=== PATIENT | female | born 1995 | race Caucasian/White ===

== ENCOUNTER → 2020-11-21 11:23 | Outpatient (CLI) | payer SELFPAY ==
--- NOTE | ~2020-11-21 | US_ITS ---
US OB transvaginal DATE: 11/21/2020 11:53 INDICATION: Gestational age determination TECHNIQUE: Real-time imaging via transvaginal approach COMPARISON: None FINDINGS: The uterus measures 8.9 cm height, 5.8 cm anteroposterior dimension. A normally shaped intr auterine gestational sac is identified with normal surrounding hyperechogenicity consistent with deci dual reaction. Normal amount of amniotic fluid. pole and yolk sac are demonstrated. heart rate 141 bpm. [place]-rump length averages 1.12 cm, consistent with 7 weeks 2 days +/- 5 days estimated gestational a ge; JELLY 07/08/2021 (compared to 07/03/2021 by LMP). 1.5 cm left ovarian cyst. The ovaries are otherwise unremarkable. No abnormal pelvic fluid collection . IMPRESSION: Estimated gestational age of 7 weeks 2 days +/- 5 days; JELLY: 07/08/2021 1.5 cm left ovarian cyst Reviewed, dictated and finalized at [facility]. Reviewed, dictated and finalized at location [facility]. IMPRESSION: Estimated gestational age of 7 weeks 2 days +/- 5 days; JELLY: 021 1.5 cm left ovarian cyst
== END ==
PROVIDERS: Visit Provider Obstetrics & Gynecology
DX: Z36.87 Encounter for antenatal screening for uncertain dates (principal); N83.202 Unspecified ovarian cyst, left side; Z3A.01 Less than 8 weeks gestation of pregnancy
CPT/HCPCS: 76817

== ENCOUNTER → 2021-02-04 12:47 | Outpatient (CLI) | payer SELFPAY ==
--- NOTE | ~2021-02-04 | US_ITS ---
EXAMINATION: US OB /maternal detail DATE: 02/04/2021 13:22 INDICATION: anatomic survey. TECHNIQUE: Real-time ultrasound of the pelvis was performed. COMPARISON: Ultrasound 11/21/2020 FINDINGS: There is a single living fetus in variable presentation. The placenta is anterior, 2.2 cm from the c ervix. heart rate is 143 beats per minute (bpm). The amniotic fluid volume is subjectively norm al. The following biometric data were obtained: Biparietal diameter (BPD): 4.0 cm; head circumference (HC): 15.5 cm; abdominal circumference (AC): 13 .3 cm; femur length (FL): 3.0 cm. These measurements are concordant. Estimated weight is 265 g +/- 40 g, which correlates with 93rd percentile when 07/08/21 is used as estimated date of delivery. As single measurements, these parameters are each equal to the following estimated gestational ages w ith ranges of +/- 2 standard deviations: BPD: 18 weeks 2 days (16 weeks 4 days - 20 weeks 0 days). HC: 18 weeks 3 days (17 weeks 0 days - 19 weeks 6 days). AC: 18 weeks 5 days (16 weeks 5 days - 20 weeks 6 days). FL: 19 weeks 2 days (17 weeks 3 days - 21 weeks 1 days). estimated gestational age based solely on measurements from this exam is 18 weeks 5 days +/- 1 weeks 2 days. The cerebral ventricles, cerebellum, cisterna magna, nuchal fold, lip, and visualized portions of the spine are normal. The heart is normal. The diaphragm, stomach, kidneys, and bladder are normal. Ther e are two umbilical arteries to yield a 3-vessel cord. The cord insertion is normal. IMPRESSION: 1. Single living fetus in variable presentation. 2. Large for gestational age. Estimated weight is 265 g +/- 40 g, which correlates with 93rd pe rcentile when 07/08/21 is used as estimated date of delivery. This date was set by ultrasound on 2020. 3. Normal anatomic survey. Reviewed, dictated and finalized at location [facility]. IMPRESSION: 1. Single living fetus in variable presentation. 2. Large for gestational age. Estimated weight is 265 g +/- 40 g, which c orrelates with 93rd percentile when 07/08/21 is used as estimated date of delive ry. This date was set by ultrasound on 11/21/2020. 3. Normal anatomic survey.
== END ==
PROVIDERS: Visit Provider Nurse Practitioner
DX: Z36.9 Encounter for antenatal screening, unspecified (principal); O36.62X0 Maternal care for excessive fetal growth, second trimester, not applicable or unspecified; Z3A.00 Weeks of gestation of pregnancy not specified
CPT/HCPCS: 76805

== ENCOUNTER → 2021-05-18 13:32 | Outpatient (CLI) | payer SELFPAY ==
--- NOTE | ~2021-05-18 | US_ITS ---
EXAMINATION: US OB follow up DATE: 05/18/2021 14:21 INDICATION: Large for gestational age during third trimester TECHNIQUE: Real-time ultrasound of the pelvis was performed. The interpreting radiologist was not pre sent for the study. COMPARISON: 02/04/2021 FINDINGS: There is a single living fetus in vertex presentation. The placenta is anterior. card iac activity and movement are noted. heart rate is 141 beats per minute (bpm). The amniot ic fluid index is 14.4 cm which is normal. The following biometric data were obtained: Biparietal diameter (BPD): 8.3 cm; head circumference (HC): 30.8 cm; abdominal circumference (AC): 31 .3 cm; femur length (FL): 6.5 cm. These measurements are concordant. Estimated weight is 2455 g +/- 368 g, which correlates with the 91st percentile when 07/08/2021 is used as estimated date of delivery. As single measurements, these parameters are each equal to the following estimated gestational ages w ith ranges of +/- 2 standard deviations: BPD: 33 weeks 4 days ( 30 weeks 4 days - 36 weeks 5 days). HC: 34 weeks 3 days ( 31 weeks 4 days - 37 weeks 3 days). AC: 35 weeks 2 days ( 32 weeks 2 days - 38 weeks 2 days). FL: 33 weeks 4 days ( 30 weeks 4 days - 36 weeks 3 days). estimated gestational age based solely on measurements from this exam is 34 weeks 2 days +/- 2 weeks 3 days. IMPRESSION: 1. Single living fetus in vertex presentation. 2. Estimated weight is 2455 g +/- 368 g, which correlates with the 91st percentile when 07/08/20 21 is used as estimated date of delivery. 3. Normal amniotic fluid index. Reviewed, dictated and finalized at location A. IMPRESSION: 1. Single living fetus in vertex presentation. 2. Estimated weight is 2455 g +/- 368 g, which correlates with the 91st p ercentile when 07/08/2021 is used as estimated date of delivery. 3. Normal amniotic fluid index.
== END ==
PROVIDERS: Visit Provider Obstetrics & Gynecology
DX: O36.63X0 Maternal care for excessive fetal growth, third trimester, not applicable or unspecified (principal); Z3A.00 Weeks of gestation of pregnancy not specified; Z3A.34 34 weeks gestation of pregnancy
CPT/HCPCS: 76816

== ENCOUNTER 2021-06-27 05:05 | Inpatient (IN) | payer SELFPAY ==
[2021-06-27] VITALS (188 sets, daily range): BP systolic 76–136; BP diastolic 40–91; PULSE 76–164; RESP 18–20; TEMP 36.6–37.2; O2SAT 73–100; BMI 38.2
[2021-06-27 05:39] LABS: Glucose Point of Care 111 mg/dl (65-105)
[2021-06-27 05:47] LABS: Basophils Percent Auto 0.2 % (0.2-1.2); Eosinophils Absolute Auto 0.2 K/mm3 (0-0.3); Eosinophils Percent Auto 1.5 % (0-4.4); Hematocrit 37.1 % (37.0-47.0); Hemoglobin 13.2 g/dL (12.0-15.0); Immature Granulocyte Absolute 0.18 K/mm3 (0.00-0.031); Immature Granulocyte Percent A 1.4 % (0-0.5); Lymphocytes Absolute Auto 1.96 K/mm3 (0.9-3.2); Lymphocytes Percent Auto 15.3 % (18.3-44.2); Mean Corpuscular HGB Conc 35.6 g/dl (32-36); Mean Corpuscular Hemoglobin 31.1 pg (26-34); Mean Corpuscular Volume 87.5 fl (80-100); Mean Platelet Volume 9.8 fl (7.4-10.4); Monocytes Absolute Auto 0.9 K/mm3 (0.1-0.6); Monocytes Percent Auto 6.9 % (2.6-8.5); Neutrophils Absolute Auto 9.6 K/mm3 (1.3-6.7); Neutrophils Percent Auto 74.7 % (45.5-73.1); Platelet Count Result 287 k/mm3 (150-375); Red Blood Count 4.24 M/mm3 (4.2-5.4); White Blood Count 12.8 K/mm3 (4.5-10.0)
--- NOTE | 2021-06-27 05:48 | LDADM ---
This patient, Tiarra Mcnally, was admitted to Labor/Delivery/Recovery 105 on 06/27/21 at 05:05. Plans for labor, pain management and were discussed with patient. Patient/family oriented to hospital policies and general routines including ID bracelet, bed and alarms, visiting hours, pain management, procedures, bathroom and other care routines, personal items, smoking policy, room service/diet and guest tray routines, security routines, and visiting hours. Patient/Family are encouraged to report perceived risks to care and to ask questions if they do not understand what they are told or what they should do. See OBIX for further documentation.
[2021-06-27] MEDS: LACTATED RINGERS 1,000 ML 125 ML IV CONT ×2 (05:53→14:10)
[2021-06-27] MEDS: OXYTOCIN 30 UNITS/NS 500 ML 30 UNITS/500 ML BAG IV CONT (05:53)
--- NOTE | 2021-06-27 08:10 | WPDANESEPP ---
Anes - Eval Pre Procedure Procedure: Labor Pain Management Date/Time: 06/27/21 08:10 Surgeon: Kwesi Preop Diagnosis: Pain during labor Pre Op Diagnosis: induction Patient Data Age: 26 Gender: F Height: 1.6 m Weight: 98 kg Last Vital Signs Temp 97.8 F 06/27/21 06:48 Pulse 93 06/27/21 08:00 Resp 20 06/27/21 06:48 BP 120/72 06/27/21 08:00 Allergies Allergy/AdvReac Type Severity Reaction Status Date / Time No Known Allergies Allergy Verified 06/27/21 06:16 Home Medications Medication Instructions Recorded Confirmed Type PNV cmb#95-ferrous fumarate-FA 1 tablet PO DAILY 06/12/21 06/12/21 History [] insulin NPH isoph U-100 human 85 unit SUBCUT HS 06/12/21 06/27/21 History [Novolin N NPH U-100 Insulin] Laboratory Tests 06/27/21 06/27/21 06/27/21 05:29 05:30 05:30 WBC 12.8 K/mm3 H K/mm3 (4.5-10.0) RBC 4.24 M/mm3 M/mm3 (4.2-5.4) Hgb 13.2 g/dL g/dL (12.0-15.0) Hct 37.1 % % (37.0-47.0) MCV 87.5 fl fl (80-100) MCH 31.1 pg pg (26-34) MCHC 35.6 g/dl g/dl (32-36) RDW 13.0 % % (11.5-14.5) Plt Count 287 k/mm3 k/mm3 (150-375) MPV 9.8 fl fl (7.4-10.4) Immature Gran % (Auto) 1.4 % H % (0-0.5) Neut % (Auto) 74.7 % H % (45.5-73.1) Lymph % (Auto) 15.3 % L % (18.3-44.2) Mitchell % (Auto) 6.9 % % (2.6-8.5) Eos % (Auto) 1.5 % % (0-4.4) Baso % (Auto) 0.2 % % (0.2-1.2) Lymph # (Auto) 1.96 K/mm3 K/mm3 (0.9-3.2) Mitchell # (Auto) 0.9 K/mm3 H K/mm3 (0.1-0.6) Eos # (Auto) 0.2 K/mm3 K/mm3 (0-0.3) Baso # (Auto) 0.0 K/mm3 K/mm3 (0.0-0.1) Abs Immat Gran (auto) 0.18 K/mm3 H K/mm3 (0.00-0.031) Absolute Neuts (auto) 9.6 K/mm3 H K/mm3 (1.3-6.7) Absolute Nucleated RBC 0.0 K/mm3 K/mm3 (0.0-0.012) Nucleated RBC % 0.0 % % (0.0-0.2) POC Capillary Glucose 111 mg/dl H mg/dl (65-105) RPR Pending Blood Type Antibody Screen 06/27/21 05:30 WBC RBC Hgb Hct MCV MCH MCHC RDW Plt Count MPV Immature Gran % (Auto) Neut % (Auto) Lymph % (Auto) Mitchell % (Auto) Eos % (Auto) Baso % (Auto) Lymph # (Auto) Mitchell # (Auto) Eos # (Auto) Baso # (Auto) Abs Immat Gran (auto) Absolute Neuts (auto) Absolute Nucleated RBC Nucleated RBC % POC Capillary Glucose RPR Blood Type A Positive Antibody Screen Negative : gestational age (edc 07/04/21) Patient hx anesthesia problems: none Family hx anesthesia problems: none Results Review: All pre-operative results and documents have been reviewed as part of the pre-operative evaluation. [facility] Family History Family History Grandparent Family history of cardiovascular disease Family history of Parkinson's disease Family history of malignant neoplasm of breast Family history of malignant neoplasm of thyroid Social History Social History Smoking status: Never smoker Second hand tobacco smoke exposure: Yes Alcohol intake: current Spiritual care concerns: No Exam Day of Procedure 06/27/21 08:10 Patient weight: obese (bmi 38.3)
[2021-06-27 09:14] LABS: Glucose Point of Care 85 mg/dl (65-105)
--- NOTE | 2021-06-27 09:45 | P.HP_ITS ---
Obstetrics - Admit Note Admission Note: record reviewed. No pertinent additions to the history and/or any subsequent changes in the physical findings that are not consistent with the expected course of the were found. AROM clear fluid /-2 Additions to the history and/or subsequent changes in the physical findings zane capone. None.
[2021-06-27] MEDS: fentaNYL CITRATE INJ (*CRX) 100 MCG/2 ML VIAL 50 MCG IV PUSH (13:04)
[2021-06-27 13:27] LABS: Glucose Point of Care 76 mg/dl (65-105)
[2021-06-27 16:25] LABS: Glucose Point of Care 53 mg/dl (65-105)
[2021-06-27 17:18] LABS: Glucose Point of Care 62 mg/dl (65-105)
[2021-06-27 18:11] LABS: Glucose Point of Care 99 mg/dl (65-105)
[2021-06-27] MEDS: ONDANSETRON INJ 4 MG/2 ML VIAL IV PUSH (19:50)
[2021-06-27 21:07] LABS: Glucose Point of Care 95 mg/dl (65-105)
--- NOTE | 2021-06-27 22:04 | PM.OBPRVD ---
OB - Delivery Note Procedure Delivery date: 06/27/21 Procedure: events: Labor Induction Intrapartal events: Diabetes Induction method: AROM and per pitocin protocol Delivery monitor: external FHT and external uterine Route of delivery: Laceration Description: Perineal - 1st Degree Delivery repair: vicryl Specimen: Yes Quantitative Blood Loss (ml): 140 Anesthesia type: Epidural Disposition: floor [place] Baby Date of : 06/27/21 Time of : 21:49 Weeks of gestation at delivery: 39 gender: Male Weight (pounds): 7 Weight (ounces): 15 presentation: vertex position: Left Occiput Anterior Placenta delivery description: Spontaneous cord vessel description: 3 Vessels, Nuchal Cord and Loose score one minute: 8 score five minutes: 9
[2021-06-27] MEDS: OXYTOCIN 30 UNITS/NS 500 ML 30 UNITS/500 ML BAG 125 UNITS IV CONT (22:18)
[2021-06-28] VITALS (7 sets, daily range): BP systolic 97–125; BP diastolic 58–73; PULSE 89–116; RESP 16–18; TEMP 36.4–36.9; O2SAT 95–98
[2021-06-28] MEDS: BENZOCAINE 20% AER SPR (*SP) 56 GM CAN 1 SPRAY TOPICAL (00:25)
[2021-06-28] MEDS: WITCH HAZEL 40 PADS 1 PAD TOPICAL (00:26)
[2021-06-28] MEDS: IBUPROFEN 600 MG TABLET PO ×4 (00:56→19:13)
--- NOTE | 2021-06-28 01:12 | PC.NURSE ---
Patient transferred to post room #285 via wheel chair. Support person present. Oriented to unit, room, information board, rooming in, admission packet and security measures. Patient verbalizes understanding.
[2021-06-28 04:31] LABS: Hematocrit 34.3 % (37.0-47.0); Hemoglobin 11.8 g/dL (12.0-15.0)
--- NOTE | 2021-06-28 07:26 | PM.OBPNVD ---
OB - PN: Subj Subjective Date/time seen: 06/28/21 07:26 doing well has some leg cramp. OB - PN: Obj Data Labs CBC & Chem 7: 06/28/21 04:13 Labs: Laboratory Results - last 24 hr 06/27/21 06/27/21 06/27/21 09:10 13:23 16:23 Hgb Hct POC Capillary Glucose 85 76 53 L* 06/27/21 06/27/21 06/27/21 17:16 18:08 21:03 Hgb Hct POC Capillary Glucose 62 L 99 95 06/28/21 04:13 Hgb 11.8 L Hct 34.3 L POC Capillary Glucose OB - PN A/P Assessment and Plan (1) (normal spontaneous vaginal delivery): Code(s): O80 - Encounter for full-term uncomplicated delivery Status: Acute Assessment and Plan: continue with pp care. Time Spent With Patient Time: Total time spent is greater than 50% in coordination of care (as documented) at patient's floor/unit and/or counseling patient: Exam Narrative: ff below umbilicus
[2021-06-28] MEDS: DOCUSATE SODIUM 100 MG CAPSULE PO (08:20)
[2021-06-28] MEDS: MULTIVIT/MIN/PREN/FOL AC/IRON TABLET 1 TAB PO (08:20)
--- NOTE | 2021-06-28 10:25 | WPDANLDPN2 ---
Anes-Prog Note L&D Date/Time: 06/28/21 10:25 Comfortable throughout: labor and delivery Neuraxial method: epidural Epidural/Spinal procedure site: clean & non-tender Neuro status: Neuro function grossly intact. Cardiovascular status: normal Respiratory status: normal Airway patency: baseline Mental status: baseline Post-Op hydration status: normal Vital Signs: Last Vital Signs Temp 98.4 F 06/28/21 01:30 Pulse 103 H 06/28/21 01:30 Resp 18 06/28/21 01:30 BP 119/73 06/28/21 01:30 Pulse Ox 82 L 06/27/21 21:49 Pain score (VAS): 0 I/O: Intake & Output 06/27/21 06/28/21 06/28/21 23:59 07:59 15:59 Intake Total 500 Output Total 305 Balance 195 Post-procedural complaints: none Patient feedback: Patient satisfied with anesthetic care.
[2021-06-28] MEDS: ACETAMINOPHEN 325 MG TABLET 650 MG PO ×2 (12:11→19:09)
[2021-06-28] MEDS: SIMETHICONE 80 MG TAB.CHEW PO ×2 (14:24→19:08)
[2021-06-29] MEDS: ACETAMINOPHEN 325 MG TABLET 650 MG PO ×2 (01:04→07:29)
[2021-06-29] MEDS: IBUPROFEN 600 MG TABLET PO ×2 (01:05→07:30)
[2021-06-29] MEDS: SIMETHICONE 80 MG TAB.CHEW PO ×2 (01:05→07:29)
[2021-06-29] MEDS: LANOLIN (LANSINOH) 7.5 GM CREAM 1 APPLIC TOPICAL (01:05)
[2021-06-29] MEDS: MULTIVIT/MIN/PREN/FOL AC/IRON TABLET 1 TAB PO (07:29)
[2021-06-29 07:30] VITALS: BP 104/69; PULSE 84; RESP 22; TEMP 36.6; O2SAT 97
--- NOTE | 2021-06-29 08:06 | PM.OBPNVD ---
OB - PN: Subj Subjective Date/time seen: 06/29/21 08:06 Patient comments: no complaints and pain well controlled baby status: doing well and nursing well OB - PN: Obj Data Labs CBC & Chem 7: 06/28/21 04:13 OB - PN A/P Plan day: 2 Plan: routine care, discharge home and follow up 6 weeks Time Spent With Patient Time: Total time spent is greater than 50% in coordination of care (as documented) at patient's floor/unit and/or counseling patient: Exam : Bimanual exam- vagina & uterus: other (Uterus firm, nt @U)
--- NOTE | 2021-06-29 09:05 | PC.NURSE ---
Consult with pt., mother reports is eagerly feeding with tenderness and needed a nipple shield on left breast. This is mother?s 2nd child to breastfeed. Requested mother call out next feeding for observation per policy. Reviewed infant feeding cues, frequencies, duration of feedings, feeding elimination flow sheet, and signs of adequate intake. Demonstrated stimulation techniques to wake for feeding. Reviewed signs of a correct latch, effective nursing and suck swallow ratio. Nipple care reviewed of lanolin after feedings and warm compresses as needed. Requested mother to call out for RN/LC assistance next feeding to assess latch due reported nipple tenderness. Instructed feeding should be initiated three hours from start of last feeding or if feeding cues are noted before. Mother voiced understanding of information shared.
--- NOTE | 2021-06-29 11:55 | PC.NURSE ---
Mother called out for assist with feeding, due to discomfort with feeding. is able to freely thrust tongue past gum ridge and flange both lips. Skin is intact on both nipples, slight redness and no bruising noted. Reviewed infant feeding cues, frequencies, duration of feedings, feeding elimination flow sheet, and signs of adequate intake. Demonstrated stimulation techniques to wake for feeding. Assisted with infant to breast. Reviewed positioning/alignment in cross cradle, holding breast in ?U? hold and guided asymmetrical latch on. Reviewed rational for each. Mother puts infant to breast in cradle positioning allowing infant to self latch with a shallow latch. Both nipples appear flat, nipples roll out easily with slight stimulation to firm everted nipples. Advised to do before each feeding. Suggested to release latch and attempt in cross cradle. Infant able to latch correctly within a few attempts. nursed eagerly with steady draws and occasional swallowing noted, some pausing noted. Reviewed signs of a correct latch, effective nursing and suck swallow ratio. Suggested mother stimulate while feeding to increase stimulation for milk supply, for increased intake and to assist with maintaining deep latch. would slip to shallow latch causing tenderness. Demonstrated how to adjust latch more deeply while feeding as needed. Mother reports she can feel the difference in latch with less tenderness. Suggested mother hold breast during entire feeding for the next week. Nipple care reviewed of lanolin after feedings, warm compresses as needed, gel pads provided and reviewed care and cleaning. Mother is planning discharge this day. Mother is feeding as required and waking to feed if needed. has had at least 8 effective feedings in the past 24 hours, and is currently meeting outcomes for weight, output, jaundice and feeding frequencies. Mother states she feels confident to continue effective at home. Reviewed transition to breast milk, signs of adequate intake, and engorgement/relief. Instructed to call ICP if intake/output less than required. Reviewed regular medications mother is taking. Information provided per Kary. Reviewed community resources on the [facility] website and in the Mom/Baby guide. Information on outpatient services provided. Mother has no further questions at this time.
[2021-06-29 14:38] LABS: Rapid Plasma Reagin Non-Reactive (NonReactive)
--- NOTE | 2021-06-29 18:24 | PC.NURSE ---
1100 Patient viewed the discharge video Mother & Baby Care, The First Two Weeks . Patient was given the opportunity and encouraged to ask questions. Patient verbalized understanding of information shared and has been given the mother/baby guide for home reference.
[2021-06-30 11:05] VITALS: BP 119/82; PULSE 72; RESP 20; TEMP 36.8; O2SAT 100
--- NOTE | 2021-07-10 12:04 | PM.OBDSVD ---
DS: Admitting Diagnosis Discharge Date 06/29/21 Admitting Diagnosis induction of labor OB - DS: Summary OB Procedures : Ultrasound OB Procedures Intrapartum: Spontaneous Vag Delivery OB Procedures: : None Time Spent with Patient Time attestation: Total time spent providing and/or coordinating discharge services: DS: Data Data Completed and Pending Completed studies during hospitalization: Pending at discharge 06/28/21 00:19 Surgical [PTH] Routine Discharge Plan Discharge Attending physician on discharge: Je Orosco Discharging Clinician: Sofía Alonso Anticipated Discharge Date/Time: 06/29/21 08:05 Patient Disposition: Home, Self-Care Activity: may shower and pelvic rest Diet: regular Discharge Instructions: Education: Mom and Baby Guide Given to: Mother Follow-Up: Call your delivering provider's office for an appointment to be seen in: 6 Weeks Mom and baby should come to the [facility] for the follow-up appointment. Appointment Date/Time: Wednesday, June 30, 2021 at 11:00 am What to expect at your follow-up visit: Physical Assessment Call [phone] if you are unable to keep your appointment time. BREAST CARE: * Wear a snug supportive bra. * For engorgement discomfort: Breast Feeding: * Apply warm moist washcloths * Express milk as needed to relieve engorgement * Wear loose clothing * For sore nipples: * Identify correct latch-on * Apply warm moist washcloths before and after nursing * Air dry nipples after nursing * May apply Lansinoh cream to nipples EPISIOTOMY/PERINEAL CARE: * Until bleeding stops, use your machelle bottle after urinating * Change your pad frequently throughout the day * You may take sitz baths several times a day (fill your bathtub with warm water and soak for 20 minutes.) Do NOT bathe in the water * No tub baths until seen by your physician - You may shower ACTIVITY: * Rest as much as possible. * Do not exercise or lift anything heavier than your baby (such as laundry or other children.) * Avoid stairs or driving as much as possible. * Do not put anything into the vagina. No douching, tampons, or sexual activity until seen by physician. NOTIFY PHYSICIAN IF YOU HAVE ANY QUESTIONS OR IF ANY OF THE FOLLOWING SYMPTOMS OCCUR: * If your episiotomy or incision becomes red, swollen, or more painful than what you have experienced in the hospital. * If your vaginal bleeding becomes foul smelling. * If your vaginal bleeding becomes more heavy than a period or if your bleeding changes from pink to bright red. However, you may pass an occasional walnut-sized clot once or twice for the first week . * If you experience a sharp, shooting pain in you calves. * If you discover a hard, reddened area on your breast or if you experience flu-like symptoms. DIET: * Eat regular, well-balanced meals. * Drink plenty of fluids daily. If , drink to thirst. Follow-up/Referrals: Je Orosco MD [Physician] - 6 Weeks Discharge Medications: Continued PNV cmb#95-ferrous fumarate-FA [] 28 mg iron- 800 mcg Tablet 1 tablet PO DAILY RF: 0 Discontinued Novolin N NPH U-100 Insulin 100 unit/mL Cartridge 85 unit SUBCUT HS RF: 0 Date of admission: 06/27/21 05:05 Primary Care Provider: Kelsi Tillman Admitting Provider: Je Orosco Attending physician on admission: Sofía Alonso Condition: Stable
== END 2021-06-29 13:32 | disposition home or self-care (01) | DRG 560 ==
LOC: ANHOB2 06-29 08:06 → ANHLDR 06-30 07:35 → ANHOB2 06-30 07:35
PROVIDERS: Admitting Provider Obstetrics & Gynecology; PCP Family Medicine; Visit Provider Obstetrics & Gynecology Gynecology
DX: O24.429 Gestational diabetes mellitus in childbirth, unspecified control (principal); O69.81X0 Labor and delivery complicated by cord around neck, without compression, not applicable or unspecified; O76 Abnormality in fetal heart rate and rhythm complicating labor and delivery; O70.0 First degree perineal laceration during delivery; Z3A.39 39 weeks gestation of pregnancy; Z37.0 Single live birth
CPT/HCPCS: 36415; 82948; 85014; 85018; 85025; 86592; 86850; 86900; 86901; 88307; A9270; J2405; J2590; J3010; J7120

== ENCOUNTER 2023-09-05 13:35 | Outpatient (CLI) | payer SELFPAY ==
--- NOTE | 2023-09-08 08:35 | WPDHOLTEREM ---
Holter/Event Monitor Holter/Event Monitor Date of procedure: 09/05/23 Holter/Event Procedure: 24 Hr Holter Monitor Indications: Dyspnea Conclusion: 1. 24 hour holter monitor on 09/05/23. 2. Underlying rhythm is sinus rhythm. HR range 62-145 bpm; average 96 bpm. HR at 145 bpm was at 14:02. 3. There are 15 premature supraventricular complexes and 10 supraventricular couplets. No supraventricular tachycardia. 4. No premature ventricular complexes. No ventricular tachycardia. 5. No sinoatrial or atrioventricular blocks. No significant pauses greater than 2 seconds. 6. No symptoms available for correlation.
== END 2023-09-05 13:36 | disposition home or self-care (01) ==
LOC: ANHCARD 13:37
PROVIDERS: PCP Internal Medicine; Visit Provider Advanced Practice Midwife
DX: R06.00 Dyspnea, unspecified (principal)
CPT/HCPCS: 93225; 93226

== ENCOUNTER 2023-10-26 06:36 | Inpatient (IN) | payer SELFPAY ==
[2023-10-26] VITALS (26 sets, daily range): BP systolic 84–134; BP diastolic 50–93; PULSE 80–131; RESP 16–20; TEMP 36.1–37.9; O2SAT 96–97; BMI 38.6
[2023-10-26 07:17] LABS: Basophils Percent Auto 0.5 % (0.2-1.2); Eosinophils Absolute Auto 0.1 K/mm3 (0-0.3); Eosinophils Percent Auto 1.6 % (0-4.4); Hematocrit 33.9 % (37.0-47.0); Hemoglobin 10.9 g/dL (12.0-15.0); Immature Granulocyte Absolute 0.05 K/mm3 (0.00-0.031); Immature Granulocyte Percent A 0.6 % (0-0.5); Lymphocytes Absolute Auto 1.58 K/mm3 (0.9-3.2); Mean Corpuscular HGB Conc 32.2 g/dl (32-36); Mean Corpuscular Hemoglobin 27.5 pg (26-34); Mean Corpuscular Volume 85.6 fl (80-100); Mean Platelet Volume 10.4 fl (7.4-10.4); Monocytes Absolute Auto 0.8 K/mm3 (0.1-0.6); Monocytes Percent Auto 8.9 % (2.6-8.5); Neutrophils Absolute Auto 6.2 K/mm3 (1.3-6.7); Neutrophils Percent Auto 70.4 % (45.5-73.1); Platelet Count Result 232 k/mm3 (150-375); Red Blood Count 3.96 M/mm3 (4.2-5.4); Red Cell Distribution Width 14.2 % (11.5-14.5); White Blood Count 8.8 K/mm3 (4.5-10.0)
--- NOTE | 2023-10-26 07:18 | LDADM ---
This patient, Tiarra Mcnally, was admitted to Labor/Delivery/Recovery 103 on 10/26/23 at 06:36. Plans for labor, pain management and were discussed with patient. Patient/family oriented to hospital policies and general routines including ID bracelet, bed and alarms, visiting hours, pain management, procedures, bathroom and other care routines, personal items, smoking policy, room service/diet and guest tray routines, security routines, and visiting hours. Patient/Family are encouraged to report perceived risks to care and to ask questions if they do not understand what they are told or what they should do. See OBIX for further documentation.
[2023-10-26 07:32] LABS: Glucose Point of Care 93 mg/dl (65-105)
--- NOTE | 2023-10-26 07:38 | WPDOBADMIT ---
Obstetrics - Admit Note Admission Note: record reviewed. No pertinent additions to the history and/or any subsequent changes in the physical findings that are not consistent with the expected course of the were found. Additions to the history and/or subsequent changes in the physical findings follow. 39 week, IOL, GDMA-2, 5 units NPH at hs, anticipate vaginal delivery
[2023-10-26 11:39] LABS: Glucose Point of Care 70 mg/dl (65-105)
[2023-10-26] MEDS: LACTATED RINGERS 1,000 ML 125 ML IV CONT (14:08)
[2023-10-26] MEDS: OXYTOCIN 30 UNITS/NS 500 ML 30 UNITS/500 ML BAG IV CONT (14:10)
[2023-10-26 14:27] LABS: Rapid Plasma Reagin Non-Reactive (NonReactive)
[2023-10-26 14:49] LABS: Glucose Point of Care 141 mg/dl (65-105)
--- NOTE | 2023-10-26 15:58 | PM.OBPRVD ---
OB - Vaginal Delivery Note Procedure Delivery date: 10/26/23 Events: Gestational Diabetes Induction method: AROM and Per Pitocin Protocol Delivery monitor: External FHT and External Uterine Route of delivery: Laceration Description: Superficial Specimen: No Quantitative Blood Loss (ml): 75 Anesthesia type: None Disposition: Floor [place] Baby Date of : 10/26/23 Time of : 15:48 Weeks of gestation at delivery: 39 gender: Male presentation: vertex position: Left Occiput Transverse Placenta delivery description: Spontaneous Cord Vessel Description: 3 Vessels score one minute: 8 score five minutes: 9 Narrative: unable to deliver shoulders easily after head LOT, tried to maneuver baby to ALBERT, able to lift right arm and deliver, the rest of the baby delivered without difficulty. baby and mother skin to skin in stable condition
[2023-10-26] MEDS: ACETAMINOPHEN 325 MG TABLET 650 MG PO ×2 (16:22→22:30)
[2023-10-26] MEDS: OXYTOCIN 30 UNITS/NS 500 ML 30 UNITS/500 ML BAG 125 UNITS IV CONT (16:23)
--- NOTE | 2023-10-26 17:16 | PC.NURSE ---
1620 - 1640 Introductions were made, then consulted with patient to assess needs related to . Discussed with mother her?plans to feed?her , past experience and is demonstrating [id number] with infant since . Educated verbally and demonstration the skill of hand expression. Large drops of first milk was expressed. latched with minimal assistance to the right breast using the laid-back positioning. Education given to the mother of how to visualize the suckling (with good rocking jaw motion), swallows (dropping of the lower jaw) and infant was able to demonstrate and maintain latch without pain to mother. Instructed mother on the detaching of infant if there's pain and offer the breast on demand. Mother voiced understanding of information and will call if there is a request for assistance. 1650 remains effectively and mother denies any discomfort.
--- NOTE | 2023-10-26 18:10 | OBPPTRN ---
Patient transferred to post room #283 via wheelchair. Support person present. Oriented to unit, room, information board, rooming in, admission packet and security measures. Patient verbalizes understanding.
[2023-10-26] MEDS: IBUPROFEN 600 MG TABLET PO (19:23)
[2023-10-27] MEDS: IBUPROFEN 600 MG TABLET PO ×4 (02:20→22:15)
[2023-10-27 04:55] LABS: Hematocrit 34.6 % (37.0-47.0); Hemoglobin 11.1 g/dL (12.0-15.0)
[2023-10-27] MEDS: ACETAMINOPHEN 325 MG TABLET 650 MG PO ×3 (05:37→19:30)
[2023-10-27] MEDS: DOCUSATE SODIUM 100 MG CAPSULE PO ×2 (08:28→17:37)
[2023-10-27] MEDS: MULTIVIT/MIN/PREN/FOL AC/IRON TABLET 1 TAB PO (08:28)
--- NOTE | 2023-10-27 08:33 | PM.OBPNVD ---
OB - PN: Subj Subjective Date/time seen: 10/27/23 08:33 Patient comments: no complaints, pain well controlled, incisional pain, tolerating diet and flatus present OB - PN: Obj Data Labs 10/27/23 04:02 Labs: Laboratory Results - last 24 hr 10/26/23 10/26/23 10/26/23 06:58 11:35 14:07 Hgb Hct POC Capillary Glucose 70 141 H RPR Non-reactive Antibody Screen Negative 10/27/23 04:02 Hgb 11.1 L Hct 34.6 L POC Capillary Glucose RPR Antibody Screen OB - PN A/P Plan day: 1 Plan: routine care Comments: No problems, routine care Time Spent With Patient Time: Total time spent is greater than 50% in coordination of care (as documented) at patient's floor/unit and/or counseling patient: Exam Const: General: comfortable, no acute distress and alert Resp: Effort & Inspection: normal respiratory effort Auscultation: no crackles, no rales and no rhonchi Cardio: Rate: regular rate Heart sounds: no click, no murmurs and no rubs GI: Inspection: non-distended GI Palp: No Tenderness to palpation present (GI) Auscultation: normal bowel sounds Other: Incision - CDI Extrem: General: normal to inspection, no pedal edema and no calf tenderness
[2023-10-27 08:50] VITALS: BP 130/66; PULSE 82; RESP 16; TEMP 36.8; O2SAT 100
--- NOTE | 2023-10-27 12:04 | PC.NURSE ---
[id number] Purposefully rounded to assess for needs. Mother states her right nipple is sore from a 0400 feeding but other than that she is able to independently latch without pain. Discussed with mother her successes, concerns and any questions she has. We reviewed working with the infant, supporting breast, protecting her nipples with an optimal deep latch, good positioning, and good hand washing. Encouraged understanding the benefits of skin to skin, responding to feeding cues, frequencies of feeding 8-12 times in 24 hours (approximately 2-3 hours), duration of feedings, milk production, intake/output feeding sheet and signs of adequate intake encouraging swallowing at the breast. Nipple care reviewed with optimal latch, good positioning and using clean hands when touching her breast. Resources used to facilitate learning were used from the visual handouts/feeding sheet/mom and baby guide with RN LC name written on the communication board to call for assistance PRN. Mother voiced understanding of the education shared, to call for assistance if the does not latch or if there is discomfort with .
--- NOTE | 2023-10-27 13:30 | PC.NURSE ---
[id number] Consulted with patient to assess needs related to . Discussed with mother her successes, concerns and any questions she has. We reviewed working with the , supporting breast, protecting her nipples with an optimal deep latch, good positioning, and good hand washing. Mother shared the bruise on the right areola from a last night breastfeed. Encouraged understanding the benefits of skin to skin, responding to feeding cues, frequencies of feeding 8-12 times in 24 hours (approximately 2-3 hours), duration of feedings, milk production, intake/output feeding sheet and signs of adequate intake encouraging swallowing at the breast. Reviewed positioning and alignment, supporting breast, off-centered (asymmetrical latch) and leading with the chin with big, open, wide gape. Infant latched optimally to the right breast in football position. Education given to the mother of how to visualize the suckling (with good rocking jaw motion) swallows (dropping of the lower jaw) and how to listen for drinking at the breast (the ka sound) which infant demonstrates well. The was able to maintain latch without discomfort to mother. Nipple care reviewed with optimal latch, good positioning and using clean hands when touching her breast. Resources used to facilitate learning were used from the visual handouts/ tool/mom and baby guide. Mother voiced understanding of the education shared, to call for assistance if the infant does not latch or if there is discomfort with . Reported to the Primary RN.
[2023-10-27 20:00] VITALS: BP 115/74; PULSE 93; RESP 18; TEMP 37.2; O2SAT 100
--- NOTE | 2023-10-28 07:34 | PM.OBPNVD ---
OB - PN: Subj Subjective Date/time seen: 10/28/23 07:34 Interval history: pp day 2 d/c home today OB - PN: Obj Data Labs 10/27/23 04:02 OB - PN A/P Plan day: 2 Plan: routine care and discharge home Time Spent With Patient Time: Total time spent is greater than 50% in coordination of care (as documented) at patient's floor/unit and/or counseling patient: Review of Systems Review of Systems: All systems reviewed & are unremarkable except as noted in HPI and below Exam Const: General: cooperative and healthy appearing Resp: Effort & Inspection: normal respiratory effort Cardio: Rate: regular rate Skin: General skin exam: normal color Neuro: General: patient oriented x3 Psych: Appearance: grossly normal
--- NOTE | 2023-10-28 07:38 | P.DS_ITS ---
DS: Admitting Diagnosis Discharge Date 10/28/23 Admitting Diagnosis IOL, GDM-2 DS: Discharge Diagnosis Discharge Diagnosis (1) (normal spontaneous vaginal delivery): Code(s): O80 - Encounter for full-term uncomplicated delivery Status: Acute OB - DS: Summary OB Procedures : None OB Procedures Intrapartum: Spontaneous Vag Delivery OB Procedures: : None Peripartum Data Laceration Description: Superficial Time Spent with Patient Time attestation: Total time spent providing and/or coordinating discharge services: Discharge Plan Discharge Attending physician on discharge: Annie Rivera Discharging Clinician: Beba Brenner Patient Disposition: Home, Self-Care Activity: pelvic rest Diet: regular Patient Instructions: Antibiotic Form Stand Alone Forms: General Discharge Information Follow-up/Referrals: Beba Brenner CNM [Certified Nurse [employer]idential [employer] Instructor] - 4 Weeks Discharge Medications: Continued loratadine [Claritin] 10 mg Tablet 10 mg PO DAILY PRN (Reason: Congestion) #2 Tablet 1 tablet DAILY Discontinued Novolin N NPH U-100 Insulin 100 unit/mL suspension 5 unit SUBCUT HS Date of admission: 10/26/23 06:36 Primary Care Provider: Veronique Fernandez Admitting Provider: Annie Rivera Attending physician on admission: Annie Rivera Condition: Stable
[2023-10-28 07:59] VITALS: BP 114/74; PULSE 70; RESP 16; TEMP 36.8; O2SAT 98
[2023-10-28] MEDS: DOCUSATE SODIUM 100 MG CAPSULE PO (08:27)
[2023-10-28] MEDS: MULTIVIT/MIN/PREN/FOL AC/IRON TABLET 1 TAB PO (08:27)
[2023-10-28] MEDS: ACETAMINOPHEN 325 MG TABLET 650 MG PO (08:27)
--- NOTE | 2023-10-28 12:12 | PC.NURSE ---
[id number] Consulted with mother concerning needs and she shared her ability to independently latch infant optimally without pain most of the time, however; had another painful latch on the right breast. Last night mother opted to feed her a bottle of formula. Reviewed protecting her milk supply and journey. Mother is feeding appropriately for growth of infant and understands stimulating infant to eat if needed. Mother request assistance with latching infant on the right breast. RN LC demonstrated unwrapping infant, checking diaper, undressing infant and placing [id number] on mother. demonstrated feeding cues and mother was gently led to build confidence in positioning her infant to the right breast using football hold. Infant latched optimally and mother denies pain with the latch. Infant has had appropriate feedings in the last 24 hours meets the outcomes for weight, output, blood sugar and jaundice at this time. Reinforced understanding of milk production, transition of milk, signs of adequate intake, transition of stool, prevention/relief of engorgement, plugged ducts, mastitis, responsive watching for feeding cues, the different methods of stimulating infant to breastfeed 1-3 hours after the start of the last feeding, community resources, and when to call a provider using the resource of the feeding sheet along with the mom and baby guide. Mother voiced understanding of the information shared, is confident to continue effectively her infant at home, when to call for assistance, denies any additional assistance or education at this time. Reported to the Primary RN.
[2023-10-29 10:43] VITALS: BP 122/76; PULSE 82; RESP 18; TEMP 36.7; O2SAT 97
== END 2023-10-28 11:35 | disposition home or self-care (01) | DRG 560 ==
LOC: ANHLDR 06:39 → ANHOB2 18:14
PROVIDERS: Admitting Provider Obstetrics & Gynecology; PCP Internal Medicine; Referring Provider Advanced Practice Midwife; Visit Provider Obstetrics & Gynecology
DX: O24.424 Gestational diabetes mellitus in childbirth, insulin controlled (principal); O70.0 First degree perineal laceration during delivery; Z3A.39 39 weeks gestation of pregnancy; Z37.0 Single live birth
CPT/HCPCS: 36415; 82948; 85014; 85018; 85025; 86592; 86850; 86900; 86901; A9270; J2590; J2795; J7120